=== PATIENT | female | born 1995 | race Two or more races ===

== ENCOUNTER 2019-02-18 13:22 | Emergency (ER) | payer MEDICAID ==
[~2019-02-18] VITALS: Ht 154.9 cm; Wt 40.8 kg
[2019-02-18 13:37] VITALS: BP 114/65
[2019-02-18] MEDS ORDERED: IBUPROFEN 400 MG TABLET ONE (13:55)
[2019-02-18] MEDS ORDERED: IBUPROFEN 400 MG TABLET PO ONE (14:00)
--- NOTE | 2019-02-18 14:06 | NUR ---
Patient discharged to home in stable condition. Written and verbal after care instructions given. Patient verbalizes understanding of instruction.
== END 2019-02-18 14:04 | disposition home or self-care (01) ==
LOC: ER 13:22
DX: M79.641 Pain in right hand (principal)